=== PATIENT | male | born 1965 | race Caucasian/White ===

== ENCOUNTER 2018-12-15 07:38 | Emergency (ER) | payer BC, OTHER ==
[2018-12-15 07:59] VITALS: BP 127/84; PULSE 78; TEMP 98.4; BMI 30.8
--- NOTE | 2018-12-15 08:15 | PDOC ---
History of Present Illness - General Chief Complaint: Injury Stated Complaint: RT LEG BLEEDING/VARICOSE VEIN Time Seen by Provider: 12/15/18 08:04 History Source: Patient Exam Limitations: No Limitations Past History - Past Medical History Allergies/Adverse Reactions: Allergies Allergy/AdvReac Type Severity Reaction Status Date / Time No Known Allergies Allergy Verified 12/15/18 07:53 Home Medications: Ambulatory Orders NK [No Known Home Medication] 12/15/18 COPD: No - Immunization History Immunization Up to Date: No - Suicide/Smoking/Psychosocial Hx Smoking History: Former smoker Have you smoked in the past 12 months: No Information on smoking cessation initiated: No Hx Alcohol Use: No Drug/Substance Use Hx: No *Physical Exam - Vital Signs Last Vital Signs Temp Pulse Resp BP Pulse Ox 98.4 F 78 18 127/84 100 12/15/18 07:45 12/15/18 07:45 12/15/18 07:45 12/15/18 07:45 12/15/18 07:45 - Physical Exam General Appearance: No: Apparent Distress Respiratory/Chest: positive: Lungs Clear, Normal Breath Sounds. negative: Respiratory Distress Cardiovascular: positive: Regular Rhythm, Regular Rate, S1, S2. negative: Murmur Extremity: positive: Other (dried blood along RLE, no active bleeding, + varicose veins of BLE, no evidence of chronic venous insuffiency, no pedal edema , no calf tenderness). negative: Pedal Edema, Calf Tenderness Integumentary: negative: Swelling, Ecchymosis, Bruising Neurologic: positive: Alert, Normal Mood/Affect Medical Decision Making - Medical Decision Making 53 y/o M with no sig pmh presents with bleeding of RLE varicose vein while showering today. Denies trauma, fever, sob, cp, swelling of extremities, calf tenderness Bleeding has already stopped Patient provided PCP clinic card to f/u with PCP 12/15/18 08:12 *DC/Admit/Observation/Transfer Diagnosis at time of Disposition: Bleeding from varicose vein - Discharge Dispostion Disposition: HOME Condition at time of disposition: Stable Decision to Admit order: No - Referrals - Patient Instructions Printed Discharge Instructions: DI for Varicose Veins Additional Instructions: Thank you for choosing [facility]. It was a pleasure taking care of you. Follow-up in primary care center clinic and consider also follow-up with vascular doctor regarding your varicose veins Consider wearing compression sleeves Return to the Emergency Department if your symptoms worsen or persist, you have fever, shortness of breath, chest pain, leg swelling, calf pain, redness or other concerning symptoms. - Post Discharge Activity
== END 2018-12-15 08:15 | disposition home or self-care (01) ==
LOC: JERFT 07:38 → JER 07:38 → JERFT 08:15
DX: I83.891 Varicose veins of right lower extremity with other complications (principal)
CPT/HCPCS: 99281-25

== ENCOUNTER 2021-10-05 06:46 | Observation (INO) | payer BC, OTHER ==
[2021-10-05 06:58] VITALS: BMI 33.3
[2021-10-05] MEDS ORDERED: LABETALOL HCL 5 MG/1 ML (100MG/20 ML VIAL) IVPUSH ONE (07:48)
[2021-10-05] MEDS ORDERED: LABETALOL HCL 5 MG/1 ML (100MG/20 ML VIAL) ONE (08:33)
[2021-10-05 08:34] LABS: BASO % 0.5 % (0-2.0); EOS % 2.1 % (0-4.5); HEMATOCRIT 41.1 % (35.4-49); LYMPH % 30.6 % (8-40); MCH 29.4 pg (25.7-33.7); MEAN CELL VOLUME 86.4 fl (80-96); MEAN PLT VOLUME 9.3 fl (7.5-11.1); MONO % 6.8 % (3.8-10.2); PLATELET COUNT 188 10^3/uL (134-434); RBC 4.76 M/mm3 (4.00-5.60); RDW 13.1 % (11.9-15.9); WHITE BLOOD COUNT 5.1 K/mm3 (4.0-10.0)
[2021-10-05 08:48] LABS: CALCIUM 9.6 mg/dL (8.5-10.1)
[2021-10-05 08:53] LABS: BILIRUBIN,TOTAL 0.7 mg/dL (0.2-1); TOT PROT 7.7 g/dl (6.4-8.2)
[2021-10-05] MEDS ORDERED: ATORVASTATIN CA 80 MG TABLET (FP) PO ONE (16:20)
[2021-10-05 16:30] VITALS: TEMP 98.3
[2021-10-05] MEDS ORDERED: ASPIRIN 81 MG CHEWABLE TABLETS PO SCH (16:30)
[2021-10-05] MEDS ORDERED: ATORVASTATIN CA 80 MG TABLET (FP) ONE (16:34)
[2021-10-05] MEDS ORDERED: ASPIRIN 81 MG CHEWABLE TABLETS ONE (16:34)
[2021-10-05 19:48] VITALS: BP 120/71; PULSE 77
== END 2021-10-05 23:15 | disposition left against medical advice (07) ==
LOC: JER 06:46 → JERBED 15:12
PROVIDERS: ADMIT Internal Medicine; ATTEND Internal Medicine
PROC: 3E033GC Introduction of Other Therapeutic Substance into Peripheral Vein, Percutaneous Approach (ICD-10-PCS; principal; 2021-10-05)
DX: M54.2 Cervicalgia (principal); R20.2 Paresthesia of skin; R20.0 Anesthesia of skin; R07.9 Chest pain, unspecified; E66.9 Obesity, unspecified; Z68.33 Body mass index [BMI] 33.0-33.9, adult
CPT/HCPCS: 36415; 70450-TC; 70498-TC; 71045-TC-FY; 71275-TC; 74174-TC; 80053; 80061; 84484; 85025; 93005; 93010; 99285-25; C9803-CS; G0378; U0003; U0005